=== PATIENT | female | born 1975 ===

== ENCOUNTER 2017-05-21 12:54 | Emergency (ER) | payer SELFPAY ==
[2017-05-21 12:55] VITALS: BMI 33.2
[2017-05-21 13:04] VITALS: TEMP 98
--- NOTE | 2017-05-21 14:06 | C.PDOC ---
History Of Present Illness 41 year old female presents to the ED for evaluation of an intermittent burning sensation felt to her left axillary region for the past 2-3 weeks. Patient notes her symptoms began spontaneously. She denies fever, chills, rash, chest pain, shortness of breath, extremity numbness/weakness, or recent trauma. Time Seen by Provider: 05/21/17 13:05 Chief Complaint (Nursing): Upper Extremity Problem/Injury History Per: Patient History/Exam Limitations: no limitations Onset/Duration Of Symptoms: Intermittent Episodes, Other (2-3 weeks ) Current Symptoms Are (Timing): Still Present Quality: "Pain" Additional History Per: Patient Past Medical History Reviewed: Historical Data, Nursing Documentation, Vital Signs Vital Signs: Last Vital Signs Temp 98 F 05/21/17 12:55 Pulse 68 05/21/17 14:35 Resp 18 05/21/17 14:35 BP 118/62 05/21/17 14:35 Pulse Ox 100 05/21/17 15:23 - Medical History PMH: No Chronic Diseases Surgical History: No Surg Hx - [facility] Procedures MANUAL ASSIST DELIV NEC (06/10/13) Family History: States: Unknown Family Hx - Social History Hx Tobacco Use: No Hx Alcohol Use: No Hx Substance Use: No - Immunization History Hx Tetanus Toxoid Vaccination: No Hx Influenza Vaccination: No Hx Pneumococcal Vaccination: No Review Of Systems Constitutional: Negative for: Fever, Chills Cardiovascular: Negative for: Chest Pain Respiratory: Negative for: Shortness of Breath Musculoskeletal: Positive for: Other (burning sensation to left axillary region ) Skin: Negative for: Rash Neurological: Negative for: Weakness, Numbness Physical Exam - Physical Exam Appears: Non-toxic, No Acute Distress Skin: Normal Color, Warm, Dry Head: Atraumatic, Normacephalic Eye(s): bilateral: Normal Inspection Oral Mucosa: Moist Neck: Normal ROM, Supple Lymphatic: No Axilla Node Tenderness Chest: Symmetrical, No Deformity, No Tenderness Cardiovascular: Rhythm Regular, No Murmur Respiratory: Normal Breath Sounds, No Rales, No Rhonchi, No Wheezing Extremity: Normal ROM, No Tenderness, Capillary Refill (less than 2 seconds ), No Swelling Neurological/Psych: Oriented x3, Normal Speech, Normal Cognition Gait: Steady ED Course And Treatment O2 Sat by Pulse Oximetry: 100 (on RA) Pulse Ox Interpretation: Normal - Other Rad left shoulder XR X-Ray: Interpreted by Me, Viewed By Me, Read By Radiologist Interpretation: PROCEDURE: Radiographs of the Left Shoulder. HISTORY: left shoulder pain. COMPARISON: None available. FINDINGS: BONES: No acute displaced fracture. The distal clavicle and underlying ribs appear intact. JOINTS: No acute dislocation. SOFT TISSUES: Soft tissues appear unremarkable. No evidence of radiopaque foreign body. IMPRESSION: No acute displaced fracture or dislocation evident. If symptoms persist or if there is continued clinical concern, x-ray follow-up in 7-10 days should be considered. Reassessment Condition: Improved Medical Decision Making Medical Decision Making: Progress: Motrin PO administered. Left shoulder XR ordered. Results show no evidence of acute displaced fracture or dislocation. On reassessment, patient is resting comfortably, showing no signs of distress and reports an improvement in her symptoms. Patient is stable for discharge and is advised to follow up with her PMD within 1-2 days for further evaluation. Disposition - Disposition Referrals: [facility] at [facility] [Outside] Disposition: HOME/ ROUTINE Disposition Time: 14:29 Condition: GOOD Additional Instructions: Follow up with the medical doctor within 1-2 days. Return if worsened. 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 - Scribe Statement The provider has reviewed the documentation as recorded by the Scribe (An Salgado) All medical record entries made by the Scribe were at my direction and personally dictated by me. I have reviewed the chart and agree that the record accurately reflects my personal performance of the history, physical exam, medical decision making, and the department course for this patient. I have also personally directed, reviewed, and agree with the discharge instructions and disposition.
--- NOTE | 2017-05-21 14:30 | RAD ---
PROCEDURE: Radiographs of the Left Shoulder HISTORY: left shoulder pain COMPARISON: None available. FINDINGS: BONES: No acute displaced fracture. The distal clavicle and underlying ribs appear intact. JOINTS: No acute dislocation. SOFT TISSUES: Soft tissues appear unremarkable. No evidence of radiopaque foreign body. IMPRESSION: No acute displaced fracture or dislocation evident. If symptoms persist or if there is continued clinical concern, x-ray follow-up in 7-10 days should be considered.
[2017-05-21 14:35] VITALS: BP 118/62; PULSE 68; RESP 18
[2017-05-21 15:23] VITALS: O2SAT 100
== END 2017-05-21 14:36 | disposition home or self-care (01) ==
LOC: SUPCPDRO 12:54 → C.ER 12:54
DX: M54.12 Radiculopathy, cervical region (principal)

== ENCOUNTER 2017-12-12 18:26 | Emergency (ER) | payer SELFPAY ==
[2017-12-12 18:41] VITALS: BMI 35.2
[2017-12-12 19:03] LABS: HCG,QUALITATIVE URINE NEGATIVE (NEGATIVE)
[2017-12-12 19:04] VITALS: BP 129/88; PULSE 88; RESP 18; TEMP 99.1; O2SAT 97
[2017-12-12 19:07] LABS: SQUAMOUS EPITHIAL 2 /hpf (0-5); URINE BACTERIA OCC (<OCC); URINE BILIRUBIN NEGATIVE (NEGATIVE); URINE BLOOD 3+ (NEGATIVE); URINE CLARITY Hazy (Clear); URINE COLOR Amber (YELLOW); URINE GLUCOSE (UA) NORMAL (Normal); URINE LEUKOCYTE ESTERASE 2+ Leu/uL (Negative); URINE PROTEIN 2+ mg/dL (NEGATIVE); URINE UROBILINOGEN NORMAL mg/dL (0.2-1.0)
--- NOTE | 2017-12-12 19:28 | C.PDOC ---
History Of Present Illness 42 yo female come in for evaluation of suprapubic pain associated with pain on urination, urinary frequency gradually developed for past 2 days. Today, noted blood in urine. Otherwise, pt denies fever, chills, headache, dizziness, sore throat, abd. pain, N/V/D, denies vaginal irritation or discharges, denies hx of frequent UTI. Ambulate to Ed for evaluation, not in nay apparent distress. Time Seen by Provider: 12/12/17 19:14 Chief Complaint (Nursing): Female Genitourinary History Per: Patient Onset/Duration Of Symptoms: Gradual Past Medical History Reviewed: Historical Data, Nursing Documentation, Vital Signs Vital Signs: Last Vital Signs Temp 99.1 F 12/12/17 19:03 Pulse 88 12/12/17 19:03 Resp 18 12/12/17 19:03 BP 129/88 12/12/17 19:03 Pulse Ox 97 12/12/17 19:03 - Medical History PMH: No Chronic Diseases - [facility] Procedures MANUAL ASSIST SCOTT GILLIS (06/10/13) Family History: States: Unknown Family Hx - Social History Hx Tobacco Use: No Hx Alcohol Use: No Hx Substance Use: No - Immunization History Hx Tetanus Toxoid Vaccination: No Hx Influenza Vaccination: No Hx Pneumococcal Vaccination: No Review Of Systems Except As Marked, All Systems Reviewed And Found Negative. Constitutional: Negative for: Fever, Chills ENT: Negative for: Throat Pain Respiratory: Negative for: Cough, Wheezing Gastrointestinal: Negative for: Nausea, Vomiting, Abdominal Pain, Diarrhea Genitourinary: Positive for: Dysuria, Frequency, Hematuria. Negative for: Vaginal Discharge, Vaginal Bleeding Musculoskeletal: Negative for: Back Pain Neurological: Negative for: Altered Mental Status, Headache, Dizziness Physical Exam - Physical Exam Appears: Well, No Acute Distress Skin: Normal Color, Warm, Dry Eye(s): bilateral: PERRL Nose: No Flaring Throat: No Erythema Neck: Supple Gastrointestinal/Abdominal: Soft, Tenderness (mod suprapubic), No Distention, No Guarding, No Rebound Back: No CVA Tenderness Extremity: Normal ROM, No Deformity, No Swelling Neurological/Psych: Oriented x3, Normal Speech, Normal Motor, Normal Sensation, Normal Reflexes ED Course And Treatment O2 Sat by Pulse Oximetry: 97 Pulse Ox Interpretation: Normal Progress Note: On re-evaluation, pt is afebrile, hemodynamicaly stable. Non- toxic. Tolerate Po well in ED. ENT: no acute findings. Neck: Supple, (-) meningeal sign. Lungs: CTA B/L, BS equal B/L. Abd: benign. Back: (-) CVA tenderness. UA results review (+) WBC, RBC. preg (-). UCx- pending. results review with pt. Pt has clinical findings c/w cystitis. Pt advised on course of ds. Ref. to F/u with PMD, PHARMACY ORDER ENTRY TECHNICIAN in 2-3 days for re-eval. return to ED if any worsening or new changes. Disposition Counseled Patient/Family Regarding: Studies Performed, Diagnosis, Need For Followup, Rx Given - Disposition [facility]errals: [facility] [[facility]] [facility] [Outside] Disposition: HOME/ ROUTINE Disposition Time: 19:25 Condition: STABLE Additional Instructions: Encourage fluids Take medication as prescribed Follow up with PMD in 2-3 days for re-evaluation. Return to ED at any time if any worsening or new changes. Prescriptions: Cranberry 500 mg PO BID #20 capsule Nitrofurantoin Macrocrystals [Macrobid] 1 cap PO BID #20 cap traMADol [Ultram] 50 mg PO TID #7 tab Instructions: Urinary Tract Infections in Adults Print Language: VIETNAMESE - Clinical Impression Clinical Impression: UTI (urinary tract infection)
== END 2017-12-12 19:36 | disposition home or self-care (01) ==
LOC: C.ER 18:26
DX: N39.0 Urinary tract infection, site not specified (principal)

== ENCOUNTER 2017-12-16 19:47 | Emergency (ER) | payer SELFPAY ==
[2017-12-16 19:47] VITALS: BMI 35.2
[2017-12-16 20:07] VITALS: RESP 18
--- NOTE | 2017-12-16 21:26 | C.PDOC ---
History Of Present Illness 42 y/o female c/o sore throat for 2 days with subjective fever, headache, no neck stiffness and occasional nausea. no vomiting. denies myalgia. some symptoms pt believes due are from tramadol, which she has stopped taking. pt seen in ed 4 days ago, being treated with macrobid for uti and tramadol for pain. pt took one tylenol at home at 5 with no improvement. (Shae Stevens ) Time Seen by Provider: 12/16/17 21:08 Chief Complaint (Nursing): ENT Problem Past Medical History Family History: States: Unknown Family Hx - Social History Hx Tobacco Use: No Hx Alcohol Use: No Hx Substance Use: No - Immunization History Hx Tetanus Toxoid Vaccination: No Hx Influenza Vaccination: No Hx Pneumococcal Vaccination: No Vital Signs: Last Vital Signs Temp 99.6 F 12/16/17 22:19 Pulse 109 H 12/16/17 22:19 Resp 18 12/16/17 22:19 BP 120/76 12/16/17 22:19 Pulse Ox 98 12/17/17 18:08 - [facility] Procedures MANUAL ASSIST DELIV NEC (06/10/13) ED Course And Treatment O2 Sat by Pulse Oximetry: 98 Medical Decision Making Medical Decision Making: Throat culture was found to be + for group A beta hemolytic streptococcus. Patient called twice and voice message was left without success. (Michelle Leos) pt reports decreased headache and dec throat pain s/p tylenol, neg for rapid strep. d/c gome with nsaids, supportive care, finish macrobid. f/u pmd. ( Shae Stevens) Patient called this morning informed of +strep culture. Will send Amoxicillin to [facility] pharmacy (Brittany Boggs) Disposition Counseled Patient/Family Regarding: Studies Performed, Diagnosis, Need For Followup, Rx Given - Disposition Disposition Time: 22:40 - Disposition Referrals: Non [facility] Provider, [Primary Care Provider] - [facility] at [facility] [Outside] Disposition: HOME/ ROUTINE Condition: IMPROVED Additional Instructions: Realice un seguimiento con gil mdico o en nilda clnica mdica la prxima semana. / Termine los antibiticos para la infeccin de orina. [place] Tylenol o Motrin para el dolor. Que grgaras con agua salada tibia varias veces al da. alondra t caliente con miel y limn. Regrese a la aisha de emergencias por mis peores s ntomas. Please follow up with your doctor or in medical clinic in the next week./ Finish antibiotics for urine infection. Take Tylenol or Motrin for pain. Gargle with warm salty water several times a day. drink hot tea with honey and lemon. Return to ER for anmy worse symptoms. Prescriptions: Amoxicillin [Amoxil 500 mg Cap] 500 mg PO BID #20 cap Ibuprofen [Motrin] 600 mg PO TID #30 tab Instructions: Sore Throat, Adult (DC), Viral Pharyngitis (DC) Forms: Gen Discharge Inst Citizen Of [place], [facility] (Citizen Of [place]) Print Language: PERUVIAN - Clinical Impression Clinical Impression: Pharyngitis
[2017-12-16 22:20] VITALS: BP 120/76; PULSE 109; TEMP 99.6
[2017-12-16 22:40] VITALS: O2SAT 98
== END 2017-12-16 22:50 | disposition home or self-care (01) ==
LOC: SUPCPDRO 19:47 → C.ER 19:47
DX: J02.9 Acute pharyngitis, unspecified (principal)

== ENCOUNTER 2018-11-24 09:52 | Outpatient (CLI) | payer SELFPAY | END 2018-11-24 09:53 | disposition home or self-care (01) | LOC: C.LAB 09:52 | DX: Z34.81 Encounter for supervision of other normal pregnancy, first trimester (principal); O09.521 Supervision of elderly multigravida, first trimester; Z90.81 Acquired absence of spleen ==

== ENCOUNTER 2018-12-07 13:42 | Emergency (ER) | payer SELFPAY ==
[2018-12-07 14:32] VITALS: BMI 33.2
[2018-12-07 14:37] VITALS: RESP 18; TEMP 98.6; O2SAT 98
--- NOTE | 2018-12-07 14:51 | C.PDOC ---
History Of Present Illness 42 y/o female, A2, presents to the ED complaining of vaginal bleeding since last night. Patient reports she is approximately 9 weeks by dates, and has not completed an ultrasound yet. She denies any abdominal pain, fevers, nausea, vomiting, diarrhea, or other complaints. Time Seen by Provider: 12/07/18 13:59 Chief Complaint (Nursing): Female Genitourinary History Per: Patient History/Exam Limitations: no limitations Onset/Duration Of Symptoms: Days (x 1) Current Symptoms Are (Timing): Still Present : 7 Para: 4 Miscarriage: 2 Past Medical History Reviewed: Historical Data, Nursing Documentation, Vital Signs Vital Signs: Last Vital Signs Temp 98.6 F 12/07/18 14:32 Pulse 69 12/07/18 14:32 Resp 18 12/07/18 14:32 BP 122/71 12/07/18 14:32 Pulse Ox 98 12/07/18 14:32 - [facility] Procedures MANUAL ASSIST DELIV NEC (06/10/13) Family History: States: Unknown Family Hx - Social History Hx Tobacco Use: No Hx Alcohol Use: No Hx Substance Use: No - Immunization History Hx Tetanus Toxoid Vaccination: No Hx Influenza Vaccination: Yes Hx Pneumococcal Vaccination: Yes Review Of Systems Except As Marked, All Systems Reviewed And Found Negative. Constitutional: Negative for: Fever Gastrointestinal: Negative for: Abdominal Pain Genitourinary: Negative for: Dysuria Physical Exam - Physical Exam Additional Physical Exam Comments: Constitutional: No acute distress. Head: Normocephalic. Atraumatic. Eyes: PERRL. ENT: Moist mucous membranes. Neck: Supple. Cardiovascular: Regular rate. Radial pulse 2+ bilaterally. Chest: No tenderness. Respiratory: Clear to auscultation bilaterally. GI: Soft. Nontender. Nondistended. Back: No CVA tenderness. Musculoskeletal: No tenderness or swelling of extremities. Skin: No rash. Neurologic: Alert, no focal deficit. ED Course And Treatment - Laboratory Results Result Diagrams: 12/07/18 14:49 12/07/18 14:49 O2 Sat by Pulse Oximetry: 98 (RA) Pulse Ox Interpretation: Normal Medical Decision Making Medical Decision Making: Initial Plan: Blood work and UA ordered. Pending Transvaginal/Pelvic US. US resulted: Accession No. : [id number] Patient Name / ID : GRISELDA SAMUEL / [id number] Exam Date : 12/07/2018 15:25:20 ( Approved ) Study Comment : Sex / Age : F / 42Y Creator : Ramya Shoemaker MD Dictator : Ramya Shoemaker MD Precast Molder : Resistance Machine Welder Setter : Ramya Shoemaker MD Approver2 : Report Date : 12/07/2018 16:32:33 My Comment : Date of service: 12/07/2018 PROCEDURE: OB Pelvic Ultrasound HISTORY: vag bleed in , assess cervix COMPARISON: None available. FINDINGS: UTERUS: Single intrauterine gestation. Yolk sac is visualized CRL measures 0.96 cm equivalent to 7 weeks and 0 day of gestational age. Gestational sac diameter measures 1.51 cm equivalent to 5 weeks and 6 days of gestational age with age (Ultrasound estimated): 6 weeks and 3 days Date of delivery (Ultrasound estimated) : 07/30/2019 cardiac activity is not documented on the current examination Keyonna-gestati onal hemorrhage: None. Uterus measures cm. No mass CERVIX: Cervix measures 2.86 cm. No cervical abnormality seen. RIGHT OVARY: Measures 1.95 x 1.0 x 2.1 cm. No mass. Normal flow. LEFT OVARY: Measures 2.9 x 2.1 x 2.4 cm. No mass. Normal flow. There is a 1.1 x 1.1 x 1.2 cm corpus luteum cyst. FREE FLUID: None. OTHER FINDINGS: None. IMPRESSION: Single intrauterine gestation with mean gestational age of 6 weeks and 3 days. cardiac activity is not identified on the current examination which could be related to early gestation however failure is also a consideration. Clinical and ultrasound follow-up is recommended. Cervical length measures 2.86 cm. The internal os is closed. Labs reviewed: Beta-HCG quant [id number] Findings consistent with 6 week gestation. F/u OBGYN, return to ED for worsening pain or bleeding. Disposition - Disposition Disposition: HOME/ ROUTINE Disposition Time: 17:29 Condition: GOOD Instructions: Threatened Miscarriage Forms: [facility] (Dominican), Gen Discharge Inst Swedish - Clinical Impression Clinical Impression: Threatened - Scribe Statement The provider has reviewed the documentation as recorded by the Cira Ortiz Provider Attestation: All medical record entries made by the Robertibmiller were at my direction and personally dictated by me. I have reviewed the chart and agree that the record accurately reflects my personal performance of the history, physical exam, medical decision making, and the department course for this patient. I have also personally directed, reviewed, and agree with the discharge instructions and disposition.
[2018-12-07 14:55] LABS: BASO # 0.1 K/uL (0.0-0.2); BASO % 1.2 % (0.0-2.0); EOS # 0.1 K/uL (0.0-0.7); EOS % 1.6 % (0.0-4.0); HEMOGLOBIN 13.1 g/dL (11.0-16.0); LYMPH # 2.6 K/uL (1.0-4.3); LYMPH % 38.8 % (20.0-40.0); MEAN CORPUSCULAR HEMOGLOBIN 34.2 pg (27.0-31.0); MEAN CORPUSCULAR HGB CONC 34.5 g/dL (33.0-37.0); MEAN PLATELET VOLUME 7.4 fL (7.2-11.7); MONO # 0.6 K/uL (0.0-0.8); NEUT # 3.4 K/uL (1.8-7.0); NEUT % 49.4 % (50.0-75.0); NRBC % 0.2 % (0.0-2.0); RBC 3.84 Mil/uL (3.80-5.20); RED CELL DISTRIBUTION WIDTH 13.9 % (11.5-14.5); WHITE BLOOD COUNT 6.8 K/uL (4.8-10.8)
[2018-12-07 14:56] LABS: SQUAMOUS EPITHIAL 1 /hpf (0-5); URINE BACTERIA RARE (<OCC); URINE BILIRUBIN NEGATIVE (NEGATIVE); URINE BLOOD NEGATIVE (NEGATIVE); URINE CLARITY Clear (Clear); URINE COLOR Yellow (YELLOW); URINE GLUCOSE (UA) 2+ mg/dL (Normal); URINE LEUKOCYTE ESTERASE NEG Leu/uL (Negative); URINE PROTEIN NEGATIVE (NEGATIVE); URINE UROBILINOGEN NORMAL mg/dL (0.2-1.0)
[2018-12-07 15:07] LABS: ALB/GLOB RATIO 1.3 (1.0-2.1); ALBUMIN 4.1 g/dL (3.5-5.0); ALT/SGPT 55 U/L (9-52); AST/SGOT 32 U/L (14-36); BLOOD UREA NITROGEN 9 mg/dL (7-17); CALCIUM 9.2 mg/dl (8.6-10.4); GFR NON-AFRICAN AMERICAN > 60
--- NOTE | 2018-12-07 16:36 | US ---
Date of service: 12/07/2018 PROCEDURE: OB Pelvic Ultrasound HISTORY: vag bleed in , assess cervix COMPARISON: None available. FINDINGS: UTERUS: Single intrauterine gestation. Yolk sac is visualized CRL measures 0.96 cm equivalent to 7 weeks and 0 day of gestational age. Gestational sac diameter measures 1.51 cm equivalent to 5 weeks and 6 days of gestational age with age (Ultrasound estimated): 6 weeks and 3 days Date of delivery (Ultrasound estimated) : 07/30/2019 cardiac activity is not documented on the current examination Keyonna-gestational hemorrhage: None. Uterus measures cm. No mass CERVIX: Cervix measures 2.86 cm. No cervical abnormality seen. RIGHT OVARY: Measures 1.95 x 1.0 x 2.1 cm. No mass. Normal flow. LEFT OVARY: Measures 2.9 x 2.1 x 2.4 cm. No mass. Normal flow. There is a 1.1 x 1.1 x 1.2 cm corpus luteum cyst. FREE FLUID: None. OTHER FINDINGS: None. IMPRESSION: Single intrauterine gestation with mean gestational age of 6 weeks and 3 days. cardiac activity is not identified on the current examination which could be related to early gestation however failure is also a consideration. Clinical and ultrasound follow-up is recommended. Cervical length measures 2.86 cm. The internal os is closed.
[2018-12-07 17:45] VITALS: BP 122/80; PULSE 63
== END 2018-12-07 17:55 | disposition home or self-care (01) ==
LOC: C.ER 13:42
DX: O20.0 Threatened abortion (principal); Z3A.09 9 weeks gestation of pregnancy

== ENCOUNTER 2018-12-08 11:12 | Emergency (ER) | payer SELFPAY ==
[2018-12-08 11:12] VITALS: BMI 33.2
[2018-12-08 13:44] LABS: SQUAMOUS EPITHIAL 1 /hpf (0-5); URINE BACTERIA RARE (<OCC); URINE BILIRUBIN NEGATIVE (NEGATIVE); URINE BLOOD 2+ (NEGATIVE); URINE CLARITY Clear (Clear); URINE COLOR Straw (YELLOW); URINE GLUCOSE (UA) NORMAL (Normal); URINE LEUKOCYTE ESTERASE NEG Leu/uL (Negative); URINE PROTEIN NEGATIVE (NEGATIVE); URINE UROBILINOGEN NORMAL mg/dL (0.2-1.0)
[2018-12-08 14:10] LABS: BASO # 0.1 K/uL (0.0-0.2); BASO % 0.7 % (0.0-2.0); EOS # 0.1 K/uL (0.0-0.7); HEMOGLOBIN 13.5 g/dL (11.0-16.0); LYMPH # 2.9 K/uL (1.0-4.3); LYMPH % 25.2 % (20.0-40.0); MEAN CELL VOLUME 99.6 fL (81.0-99.0); MEAN CORPUSCULAR HEMOGLOBIN 34.6 pg (27.0-31.0); MEAN CORPUSCULAR HGB CONC 34.8 g/dL (33.0-37.0); MEAN PLATELET VOLUME 8.3 fL (7.2-11.7); MONO # 0.8 K/uL (0.0-0.8); MONO % 6.7 % (0.0-10.0); NEUT # 7.6 K/uL (1.8-7.0); NEUT % 66.4 % (50.0-75.0); NRBC % 0.1 % (0.0-2.0); RBC 3.9 Mil/uL (3.80-5.20); RED CELL DISTRIBUTION WIDTH 13.9 % (11.5-14.5)
[2018-12-08 14:11] LABS: WHITE BLOOD COUNT 11.4 K/uL (4.8-10.8)
[2018-12-08 14:22] LABS: ALB/GLOB RATIO 1.5 (1.0-2.1); ALBUMIN 4.1 g/dL (3.5-5.0); ALT/SGPT 54 U/L (9-52); AST/SGOT 38 U/L (14-36); BLOOD UREA NITROGEN 9 mg/dL (7-17); CALCIUM 9.1 mg/dl (8.6-10.4); GFR NON-AFRICAN AMERICAN > 60
--- NOTE | 2018-12-08 14:22 | C.PDOC ---
History Of Present Illness 42 y/o female c/o vaginal bleeding since yesterday; today pt reports she passed tissue and has lower abdominal cramping. pt was seen in ed yesterday for threatened here. Otherwise pt denies any n/v/d, fevers, or other complaints. Time Seen by Provider: 12/08/18 13:04 Chief Complaint (Nursing): Female Genitourinary History Per: Patient, Administrative Support Technician ([id number] Jacklyn) History/Exam Limitations: language barrier Onset/Duration Of Symptoms: Days (2) Severity: Moderate Quality Of Discomfort: Cramping, "Pain" Alleviating Factors: None Abnormal Vaginal Bleeding: Yes : 7 Para: 3 Miscarriage: 3 Past Medical History Reviewed: Historical Data, Nursing Documentation, Vital Signs Vital Signs: Last Vital Signs Temp 78 F L 12/08/18 11:26 Pulse 70 12/08/18 11:26 Resp 17 12/08/18 11:26 BP 117/81 12/08/18 11:26 Pulse Ox 97 12/08/18 11:26 Primary Care Provider: Non [facility] Provider, - Medical History PMH: No Chronic Diseases - [facility] Procedures MANUAL ASSIST DELIV NEC (06/10/13) Family History: States: Unknown Family Hx - Social History Hx Tobacco Use: No Hx Alcohol Use: No Hx Substance Use: No - Immunization History Hx Tetanus Toxoid Vaccination: No Hx Influenza Vaccination: Yes Hx Pneumococcal Vaccination: Yes Review Of Systems Constitutional: Negative for: Fever, Chills Gastrointestinal: Positive for: Abdominal Pain. Negative for: Nausea, Vomiting Genitourinary: Positive for: Vaginal Bleeding Neurological: Negative for: Weakness Physical Exam - Physical Exam Appears: Non-toxic, No Acute Distress Skin: Normal Color, No Rash Head: Atraumatic, Normacephalic Eye(s): bilateral: PERRL, EOMI Neck: Normal ROM Chest: Symmetrical Cardiovascular: Rhythm Regular, No Murmur Respiratory: No Rales, No Rhonchi, No Wheezing, Other (Lungs CTA) Gastrointestinal/Abdominal: Bowel Sounds (normal), Soft, Tenderness (to the LLQ, suprapubic, and RLQ), No Guarding, No Rebound Back: No CVA Tenderness Extremity: Normal ROM, No Pedal Edema, No Deformity Neurological/Psych: Oriented x3, Normal Speech, Normal Cognition ED Course And Treatment - Laboratory Results Result Diagrams: 12/08/18 14:07 12/08/18 14:07 Lab Results: Urine Color Straw (YELLOW) 12/08/18 13:37 Urine Clarity Clear (Clear) 12/08/18 13:37 Urine pH 6.0 (5.0-8.0) 12/08/18 13:37 Ur Specific Neely 1.002 (1.003-1.030) L 12/08/18 13:37 Urine Protein Negative mg/dL (NEGATIVE) 12/08/18 13:37 Urine Glucose (UA) Normal mg/dL (Normal) 12/08/18 13:37 Urine Ketones Negative mg/dL (NEGATIVE) 12/08/18 13:37 Urine Blood 2+ (NEGATIVE) H 12/08/18 13:37 Urine Nitrate Negative (NEGATIVE) 12/08/18 13:37 Urine Bilirubin Negative (NEGATIVE) 12/08/18 13:37 Urine Urobilinogen Normal mg/dL (0.2-1.0) 12/08/18 13:37 Ur Leukocyte Esterase Neg Geraldine/uL (Negative) 12/08/18 13:37 Urine WBC (Auto) < 1 /hpf (0-5) 12/08/18 13:37 Urine RBC (Auto) 1 /hpf (0-3) 12/08/18 13:37 Ur Squamous Epith Cells 1 /hpf (0-5) 12/08/18 13:37 Urine Bacteria Rare (<OCC) 12/08/18 13:37 O2 Sat by Pulse Oximetry: 97 Pulse Ox Interpretation: Normal Medical Decision Making Medical Decision Making: Initial Plan: Blood work and UA sent for analysis. Will repeat Transvaginal/Pelvis US. Patient given PO Tylenol for pain. nothing found in uterus on sonogram' some tissue/fluid in vaginal canal. Dr Tijerina consulted, came to see pt in ed. recommends cytotec and ibuprofen with continued f/u at scheduled appt at [facility] on 12/14. Disposition Counseled Patient/Family Regarding: Studies Performed, Diagnosis, Need For Followup, Rx Given - Disposition Disposition: HOME/ ROUTINE Disposition Time: 17:20 Condition: GOOD Additional Instructions: Odem Cytotec (misoprostol) segn lo prescrito junto con Ibuprofeno rao 2 carballo. Tendr muchos calambres abdominales y el sangrado debe disminuir. Regrese a la aisha de emergencias para cualquier sntoma peor de lo contrario, rafi un seguimiento en gil marycruz ya programada con ginecologa el 12/14. Nothing in vagina. No tampons or sex. Please take Cytotec (misoprostol) as prescribed along with Ibuprofen for 2 days. You will have a lot of abdominal cramping and bleeding should slow down. Return to ER for any worse symptoms; otherwise follow up at your already scheduled appointment with gynecology on 12/14. Prescriptions: Ibuprofen [Motrin] 800 mg PO TID #30 tab miSOPROStol [Cytotec] 400 mcg PO TID #12 tab Instructions: Miscarriage (DC) Forms: General Discharge Instructions, Gen Discharge Inst Welsh, [employer] (Welsh) Print Language: LAO - Clinical Impression Clinical Impression: Incomplete - PA / PROGRESS DEVELOPER / Resident Statement MD/DO has reviewed & agrees with the documentation as recorded. - Scribe Statement The provider has reviewed the documentation as recorded by the Scribmiller Ortiz All medical record entries made by the Scribe were at my direction and personally dictated by me. I have reviewed the chart and agree that the record accurately reflects my personal performance of the history, physical exam, med [facility] decision making, and the department course for this patient. I have also personally directed, reviewed, and agree with the discharge instructions and disposition.
--- NOTE | 2018-12-08 15:40 | US ---
Date of service: 12/08/2018 Indication: preg bleeding Comparison: 1st trimester ultrasound performed 12/07/18 Technique: Transvaginal pelvic ultrasound. Findings: The uterus measures approximately 9.7 x 6.0 x 6.9 cm. Heterogeneous. 0.7 x 0.6 x 0.8 cm probable fundal fibroid. Cervix length measures approximately 3.7 cm. Endometrium measures approximately 1.3 cm and appears heterogeneous and vascular. 0.6 x 0.3 x 0.9 cm heterogeneous small fluid collection/blood products noted. No evidence of normal appearing intrauterine gestational sac. The right ovary measures 3.1 x 1.4 x 2.5 cm. The left ovary measures 2.9 x 1.6 x 1.8. Blood flow was demonstrated to both ovaries. 1.3 x 1.2 x 1.2 cm probable left corpus luteum. Small pelvic free fluid noted. Impression: Heterogeneous uterine echotexture. 0.8 cm probable fundal fibroid. Heterogeneous and vascular appearance of the endometrium with 0.6 x 0.3 x 0.9 cm heterogeneous small fluid collection/blood products noted. No evidence of a normal appearing intrauterine gestational sac evident. Correlate clinically. 1.3 cm probable left corpus luteal cyst. Small pelvic free fluid. Findings discussed with TRINIDAD Stevens on 12/08/18 at 3:36 p.m.
--- NOTE | 2018-12-08 17:22 | CP.PCM.CON ---
<Mejia Salgado - Last Filed: 12/08/18 17:23> History of Present Illness - History of Present Illness History of Present Illness: Mejia Salgado DO PGY1 - OBGYN Consult Note for Dr. 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 Patient presented to ED yesterday w/ si milar complaints; ultrasound at that time showed single IUP at 6wk gestational age w/o heart beat. Patient was discharged home w/ OBGYN follow up. Patient presented back to ED due to worsening of bleeding in interim time period. At time of evaluation, denies any chest pain, dizziness, fevers, chills, nausea, vomiting. Of note she has had 4 children w/ previous partner; and 3 miscarriages w/ new partner. 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 Nahomi Le[facility]; [facility]; 1st period 15 years; Periods are regular occurring every 27 days lasting 3 days. All births vaginal w/o complication: May 1993, February 1995, October 1996, October 1998 Fam Hx: Mother DM; No hx of breast ca, cervical CA, ovarian CA Home Rx: Vit Review of Systems - Review of Systems All systems: reviewed and no additional remarkable complaints except Review of Systems: As per HPI Past Patient History - Infectious Disease Hx of Infectious Diseases: None - Past Social History Smoking Status: Never Smoked - CARDIAC Hx Cardiac Disorders: Yes Hx Heart Murmur: Yes - ENDOCRINE/METABOLIC Hx Endocrine Disorders: Yes Other/Comment: diabetes during - GENITOURINARY/GYNECOLOGICAL Hx Urinary Tract Infection: Yes Other/Comment: UNDER PRESENT RX FOR UTI - PSYCHIATRIC Hx Substance Use: No - SURGICAL HISTORY Hx Surgeries: Yes 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) - ANESTHESIA Hx Anesthesia: Yes Hx Anesthesia Reactions: No Meds Home Medications: Home Medication List Medication Instructions Recorded Confirmed Type Ibuprofen [Motrin] 800 mg PO TID #30 tab 12/08/18 Rx miSOPROStol [Cytotec] 400 mcg PO TID #12 tab 12/08/18 Rx Allergies/Adverse Reactions: Allergies Allergy/AdvReac Type Severity Reaction Status Date / Time No Known Allergies Allergy Verified 12/08/18 11:24 Physical Exam - Constitutional Appears: Well, Non-toxic, No Acute Distress - Head Exam Head Exam: ATRAUMATIC, NORMOCEPHALIC - Eye Exam Eye Exam: EOMI, PERRL - Respiratory Exam Respiratory Exam: Clear to Auscultation Bilateral, NORMAL BREATHING PATTERN - Cardiovascular Exam Cardiovascular Exam: RRR. absent: Systolic Murmur - GI/Abdominal Exam GI & Abdominal Exam: Soft, Tenderness (very mild RLQ/LLQ tenderness to palpation) - Exam Additional comments: Vaginal Exam - Bimanual and Speculum Examination Performed w/ Dr. Tijerina and Medical Student Present: No external vaginal lesions appreciated, vaginal mucosa pink, cervix is flushed along posterior vaginal wall, cerivcal os is closed, very minimal bleeding appreciated, no bright red blood, clots, or tissue appreciated, no chandelier sign/ vaginal tenderness on examination. - Neurological Exam Neurological exam: Alert, Oriented x3 - Psychiatric Exam Psychiatric exam: Normal Affect, Normal Mood - Skin Skin Exam: Dry, Intact, Normal Color, Warm Results - Vital Signs Recent Vital Signs: Last Vital Signs Temp 78 F L 12/08/18 11:26 Pulse 70 12/08/18 11:26 Resp 17 12/08/18 11:26 BP 117/81 12/08/18 11:26 Pulse Ox 97 12/08/18 15:08 - Labs Result Diagrams: 12/08/18 14:07 12/08/18 14:07 Labs: Laboratory Results - last 24 hr 12/08/18 12/08/18 12/08/18 13:37 14:07 14:07 WBC 11.4 H D RBC 3.90 Hgb 13.5 Hct 38.8 MCV 99.6 H MCH 34.6 H MCHC 34.8 RDW 13.9 Plt Count 368 MPV 8.3 Neut % (Auto) 66.4 Lymph % (Auto) 25.2 Hinds % (Auto) 6.7 Eos % (Auto) 1.0 Baso % (Auto) 0.7 Neut # (Auto) 7.6 H Lymph # (Auto) 2.9 Hinds # (Auto) 0.8 Eos # (Auto) 0.1 Baso # (Auto) 0.1 Sodium 138 Potassium 4.3 Chloride 101 Carbon Dioxide 23 Anion Gap 18 BUN 9 Creatinine 0.5 L Est GFR ( Amer) > 60 Est GFR (Non-Af Amer) > 60 Random Glucose 156 H D Calcium 9.1 Total Bilirubin 0.6 AST 38 H ALT 54 H Alkaline Phosphatase 86 Total Protein 6.8 Albumin 4.1 Globulin 2.7 Albumin/Globulin Ratio 1.5 Beta HCG, Quant 1007.60 Urine Color Straw Urine Clarity Clear Urine pH 6.0 Ur Specific [place] 1.002 L Urine Protein Negative Urine Glucose (UA) Normal Urine Ketones Negative Urine Blood 2+ H Urine Nitrate Negative Urine Bilirubin Negative Urine Urobilinogen Normal Ur Leukocyte Esterase Neg Urine WBC (Auto) < 1 Urine RBC (Auto) 1 Ur Squamous Epith Cells 1 Urine Bacteria Rare Assessment & Plan - Assessment and Plan (Free Text) Assessment: Pt is a 42 year old female who presented w/ complaints of vaginal bleeding x1 day; noted to have single IUP on US on 12/07; repeat TVUS on 12/08 noted to have no evidence of IUP; Quant BHCG downtrending; suspect Complete . Discussed findings w/ patient; She said that she has had a new partner in recent years an subsequently most recent pregnancies have resulted in miscarriages. Given that the patient has had 4 full term deliveries w/ previous partner and that she would still like to become ; we reccomend the following: PLAN: -Cytotec 400mg TID x 2 days -Motrin 800mg TID x2 days -Outpt OBGYN follow up -Further Genetic / Fertility workup via outpt OBGYN of both patient and her partner Patient was seen, examined, and discussed w/ attending Dr. Tijerina Thank You for this consult, Please reconsult as necessary Mejia Salgado DO PGY1 <Celina Tijerina - Last Filed: 12/08/18 18:46> Results - Vital Signs Recent Vital Signs: Last Vital Signs Temp 98.1 F 12/08/18 17:44 Pulse 68 12/08/18 17:44 Resp 16 12/08/18 17:44 BP 120/80 12/08/18 17:44 Pulse Ox 99 12/08/18 17:44 - Labs Result Diagrams: 12/08/18 14:07 12/08/18 14:07 Labs: Laboratory Results - last 24 hr 12/08/18 12/08/18 12/08/18 13:37 14:07 14:07 WBC 11.4 H D RBC 3.90 Hgb 13.5 Hct 38.8 MCV 99.6 H MCH 34.6 H MCHC 34.8 RDW 13.9 Plt Count 368 MPV 8.3 Neut % (Auto) 66.4 Lymph % (Auto) 25.2 Hinds % (Auto) 6.7 Eos % (Auto) 1.0 Baso % (Auto) 0.7 Neut # (Auto) 7.6 H Lymph # (Auto) 2.9 Hinds # (Auto) 0.8 Eos # (Auto) 0.1 Baso # (Auto) 0.1 Sodium 138 Potassium 4.3 Chloride 101 Carbon Dioxide 23 Anion Gap 18 BUN 9 Creatinine 0.5 L Est GFR ( Amer) > 60 Est GFR (Non-Af Amer) > 60 Random Glucose 156 H D Calcium 9.1 Total Bilirubin 0.6 AST 38 H ALT 54 H Alkaline Phosphatase 86 Total Protein 6.8 Albumin 4.1 Globulin 2.7 Albumin/Globulin Ratio 1.5 Beta HCG, Quant 1007.60 Urine Color Straw Urine Clarity Clear Urine pH 6.0 Ur Specific [place] 1.002 L Urine Protein Negative Urine Glucose (UA) Normal Urine Ketones Negative Urine Blood 2+ H Urine Nitrate Negative Urine Bilirubin Negative Urine Urobilinogen Normal Ur Leukocyte Esterase Neg Urine WBC (Auto) < 1 Urine RBC (Auto) 1 Ur Squamous Epith Cells 1 Urine Bacteria Rare Attending/Attestation - Attestation I have personally seen and examined this patient.: Yes I have fully participated in the care of the patient.: Yes I have reviewed all pertinent clinical information: Yes Notes (Text): 12/08/18 18:38 Patient seen, examined and evaluated by me with the Resident. I agree with the above as documented. Note: all laboratory results and ultrasound reports were reviewed by me directly. I performed the cervical and bimanual examinations: cervical os was flushed to apex of the vaginal vault. No active bleeding noted. No blood clots per vagina. Cervical os was closed; no adnexal masses appreciated. Patient is Rh(+). In light of the fact that patient desires to conceive with her current partner of 5years, by whom she has become but has had the 3 most recent spontaneous abortions, inclusive, it was discussed with her to consider undergoing genetics counselling, at which time both she and partner should be evaluated. Of note: partner is 33 y.o. and has no children. Patient expressed an understanding and agrees. No questions were offered. Patient encouraged to keep her appointment, 12/15/18, [facility]. Patient is clinically stable. Plan: as above Thank you for the pleasure of this consultation
[2018-12-08 17:45] VITALS: BP 120/80; PULSE 68; RESP 16; TEMP 98.1
[2018-12-10 10:32] VITALS: O2SAT 97
== END 2018-12-08 17:44 | disposition home or self-care (01) ==
LOC: C.ER 11:12
DX: O03.4 Incomplete spontaneous abortion without complication (principal)